=== PATIENT | male | born 1965 | race African-American/Black ===

== ENCOUNTER → 2017-11-21 | Outpatient (CLI) | payer OTHER ==
--- NOTE | 2017-11-21 09:52 | RADIOLOGY REPORT (SQ) ---
EXAM DESCRIPTION: HAND RIGHT 3 VIEWS COMPLETED DATE/TIME: 11/21/2017 9:38 am REASON FOR STUDY: M20.011 MALLET FINGER OF RIGHT FINGER(S) M20.011 MALLET FINGER OF RIGHT FINGER(S) COMPARISON: None. EXAM PARAMETERS: NUMBER OF VIEWS: Three views. TECHNIQUE: AP, lateral and oblique radiographic images acquired of the right hand. LIMITATIONS: None. FINDINGS: MINERALIZATION: Normal. BONES: No acute fracture or dislocation. No worrisome bone lesions. JOINTS: There are some minimal degenerative changes involving the DIP joint of the 5th digit. SOFT TISSUES: No soft tissue swelling. No foreign body. OTHER: No other significant finding. IMPRESSION: No acute fracture dislocation. Minimal degenerative changes involving the DIP joint of the 5th digit TECHNICAL DOCUMENTATION: JOB ID: [id number] [employer]- All Rights Reserved
== END ==
LOC: RAD 09:19
PROVIDERS: ATTEND Family Medicine
DX: M20.011 Mallet finger of right finger(s) (principal)